=== PATIENT | female | born 1955 | race Hispanic/Latino ===

== ENCOUNTER 2018-04-02 07:22 | Day surgery (SDC) | payer OTHER ==
[~2018-04-02] VITALS: Ht 165.1 cm; Wt 84.8 kg
[~2018-04-02 07:22] MED LIST: AMLODIPINE5 MG PO; BENZONATATE200 MG PO; CALCI17 PO; CRESTOR20 MG PO; FLEXERIL PO; LISINOP/HCTZ1 TA1 PO; LORTAB 7.5-3251 TAB PO; MOTRIN800 MG PO; MULTI VIT PO; NAPROSYN500 MG PO; OMEPRAZOLE20 MG PO; PRILOSEC20 MG/CAP PO; PROTONIX40 MG OR; RANITIDINE150 MG OR; TYLENOL500 MG OR; VERAPAMIL240 M1 OR
[2018-04-02] MEDS ORDERED: LISINOPRIL10 MG PO (07:37)
[2018-04-02 09:11] VITALS: BP 123/64
== END 2018-04-02 09:23 | disposition home or self-care (01) | DRG 951 ==
LOC: ENDO 07:22 → ORM 08:30 → ENDO 08:30
PROVIDERS: ATTEND Surgery
PROC: 0DJD8ZZ Inspection of Lower Intestinal Tract, Via Natural or Artificial Opening Endoscopic (ICD-10-PCS; principal; 2018-04-02)
PROC: 0DB48ZX Excision of Esophagogastric Junction, Via Natural or Artificial Opening Endoscopic, Diagnostic (ICD-10-PCS; 2018-04-02)
PROC: 0DB78ZX Excision of Stomach, Pylorus, Via Natural or Artificial Opening Endoscopic, Diagnostic (ICD-10-PCS; 2018-04-02)
DX: Z12.11 Encounter for screening for malignant neoplasm of colon (principal); K21.0 Gastro-esophageal reflux disease with esophagitis; K44.9 Diaphragmatic hernia without obstruction or gangrene; K29.70 Gastritis, unspecified, without bleeding

== ENCOUNTER 2023-12-16 14:18 | Emergency (ER) | payer MEDICARE ==
[~2023-12-16] VITALS: Ht 162.6 cm; Wt 85.0 kg
[~2023-12-16 14:18] MED LIST changes: +ALENDRONATE35 MG PO; +ARNUITY EL50 MCG/ACT; +AZELASTINE HCL0.1 %; +COZAAR25 MG PO; +FLOVENT HF110 MCG/AC; +HYDROCHLOROT12.5 M1 PO; +LISINOPRIL10 MG PO; +METFORMIN500 M2 PO; +OS-CAL 500500 M1 PO; +PREVACID30 M1 PO; +PROTONIX20 M1 PO; +VITAMIN D320 MCG; +ZYRTEC10 MG PO
[2023-12-16 14:57] VITALS: BP 146/70
[2023-12-16 15:01] VITALS: BP 133/65
[2023-12-16] MEDS ORDERED: KETOROLAC TROMETHAMINE 30 MG/ML SDV IM ONE (15:10)
[2023-12-16] MEDS ORDERED: predniSONE 20 MG/TAB PO ONE (15:10)
[2023-12-16 15:30] VITALS: BP 148/65
[2023-12-16] MEDS ORDERED: PREDNISONE20 MG PO (15:52)
[2023-12-16 16:00] VITALS: BP 134/59
== END 2023-12-16 16:00 | disposition home or self-care (01) ==
LOC: ED 14:18
DX: M54.32 Sciatica, left side (principal); I10 Essential (primary) hypertension; R73.03 Prediabetes